=== PATIENT | male | born 1990 | race Caucasian/White ===

== ENCOUNTER 2017-03-08 09:37 | Emergency (ER) | payer SELFPAY ==
--- NOTE | 2017-03-10 13:52 | ER ---
ADMIT: 03/08/2017 RM/LOC: ER [facility] MR#: [id number] [address] [id number] ATTILA MELISSA [address] [place] [address] Emergency Room Report SEX: M AGE: 26 : 1990 DATE: 03/08/2017 CHIEF COMPLAINT: Cough. HISTORY OF PRESENT ILLNESS: A 26-year-old male, who presents with 2 days duration of upper respiratory symptoms. He states he has been coughing very heavily to the point that he vomits. He states he has had a runny nose with green yellow discharge. Complains of sinus pain and drainage. He does have a history of seasonal allergies, currently untreated. He states he has been coughing so much that he is starting to have some chest pain, mild shortness of breath with pain and difficulty breathing. Worsened with deep breath and physical activity. He says he did have the symptoms about a week ago. They resolved and have turned now. He is not currently taking any medications. He is currently released from the [facility] on work release, due to return later this evening. He does have a past medical history for asthma per his report. Allergies Ceftin. Does smoke a half pack per day. COURSE IN THE EMERGENCY ROOM: GENERAL: The patient was seen and examined. He is afebrile, nontoxic, in no acute distress. HEAD: Normocephalic and atraumatic. ENT: Eyes, unremarkable. Nose, he does have some clear rhinorrhea with mild mucosal edema. Ears, are pearly gallardo bilaterally. Pharynx is nonerythematous. NECK: Soft and supple. No lymphadenopathy. CHEST: Clear to auscultation. No wheezes, rhonchi, or rales. HEART: Regular rate and rhythm. SKIN: Warm and dry. EXTREMITIES: Nontender. No pedal edema. IMPRESSION: 1. Upper respiratory infection. 2. Cough. DISPOSITION: The patient was discharged. Script for Tessalon Perles 100 mg one tab p.o. t.i.d. as needed for cough #15 as well as an albuterol inhaler two puffs inhaled q.4 to 6 hours as needed for shortness of breath. I did recommend he start an [id number] antihistamine daily as directed by the packaging. He should follow up with Dr. Jones as needed. Tylenol and Motrin as needed for pain. Increase fluids. Questions sought and answered to the best of my ability and the patient's satisfaction. Discharged in stable condition. GONZALO Rubio / Thaddeus Grimm MD / modl JOB #: [id number] CC: Thaddeus Grimm MD, Attending Physician ADMIT: 03/08/2017 RM/LOC: [facility] MR#: [id number] [address] [place] [id number] ATTILA MELISSA [address] [place] [address] Emergency Room Report SEX: M AGE: 26 : 1990 Dileep Jones MD, Family Physician
== END 2017-03-08 10:23 | disposition home or self-care (01) ==
LOC: ER 09:37
DX: J06.9 Acute upper respiratory infection, unspecified (principal); F17.210 Nicotine dependence, cigarettes, uncomplicated; J45.909 Unspecified asthma, uncomplicated; Z88.1 Allergy status to other antibiotic agents; Z90.89 Acquired absence of other organs; Z98.890 Other specified postprocedural states